=== PATIENT | female | born 2000 | race Asian ===

== ENCOUNTER 2022-01-25 15:10 | Emergency (ER) | payer OTHER ==
[~2022-01-25] VITALS: Ht 165.1 cm; Wt 48.6 kg
[2022-01-25 15:11] VITALS: TEMP 98.6
[2022-01-25 15:31] LABS: BASO % 0.4 % (0.0-2.0); EOS # 0.1 K/mm3 (0.0-0.7); EOS % 1.1 % (0.0-4.0); GRAN # 3.1 K/mm3 (1.4-6.5); GRAN % 43.7 % (42.2-75.2); HEMOGLOBIN 14.3 g/dl (12.0-15.0); LYMPH # 3.3 K/mm3 (1.2-3.4); LYMPH % 46.1 % (20.0-51.0); MEAN CELL VOLUME 84 fl (80.0-95.0); MEAN CORPUSCULAR HEMOGLOBIN 29 pg (26-32); MEAN CORPUSCULAR HGB CONC 35 g/dl (33.0-37.0); MEAN PLATELET VOLUME 8.9 fl (7.4-10.4); MONO # 0.6 K/mm3 (0.1-0.6); MONO % 8.6 % (1.7-9.3); PLATELET COUNT 395 K/mm3 (130-400); RED BLOOD COUNT 4.89 M/mm3 (4.10-5.30); REDCELL DISTRIBUTION WIDTH-CV 12.1 % (11.5-14.5)
[2022-01-25 15:44] LABS: ALBUMIN 4.4 gm/dL (3.5-5.0); ANION GAP 14 mmol/L (7-16); BLOOD UREA NITROGEN 11 mg/dL (7-19); CALCIUM 9.8 mg/dL (8.4-10.2); CARBON DIOXIDE 20 mmol/L (22-29); CHLORIDE 103 mmol/L (98-107); CREATININE, serum 0.87 mg/dL (0.57-1.11); GLUCOSE 89 mg/dL (70-99); MAGNESIUM 2.1 mg/dL (1.6-2.6); PHOSPHOROUS 2.8 mg/dL (2.3-4.7); POTASSIUM 3.8 mmol/L (3.5-4.5); SODIUM 137 mmol/L (136-145)
[2022-01-25 15:50] LABS: ALCOHOL(ethanol),MEDICAL < 10 mg/dL (0-10)
[2022-01-25 16:06] LABS: COLLECTION METHOD CLEAN CATCH
[2022-01-25 16:18] LABS: MUCOUS Present (NOT PRESENT); PH 7 (5-8); URINE APPEARANCE Hazy (CLEAR/HAZY); URINE BACTERIA Rare /hpf (NONE SEEN); URINE BILIRUBIN Negative (NEGATIVE); URINE BLOOD Negative (NEGATIVE); URINE COLOR Yellow (YELLOW); URINE GLUCOSE Negative (NEGATIVE); URINE KETONE Negative (NEGATIVE); URINE LEUKOCYTE ESTERASE Trace (NEGATIVE); URINE NITRATE Negative (NEGATIVE); URINE PROTEIN(semi-quant) 2+ (NEGATIVE); URINE RBC 0-2 /hpf (0-2); URINE UROBILINOGEN Negative (NEGATIVE)
[2022-01-25 16:25] LABS: TRICYCLIC ANTIDEPRESS URINE NEGATIVE
[2022-01-25 18:24] VITALS: BP 129/95; PULSE 100
== END 2022-01-25 18:20 | disposition home or self-care (01) ==
LOC: COL.ER 15:10
PROVIDERS: Emergency Medicine
DX: R56.9 Unspecified convulsions (principal); F32.A Depression, unspecified; Z79.899 Other long term (current) drug therapy
CPT/HCPCS: J7030